=== PATIENT | male | born 1995 | race African-American/Black ===

== ENCOUNTER 2020-08-02 12:59 | Outpatient (CLI) | payer BC | END 2020-08-02 13:00 | disposition home or self-care (01) | LOC: CSHWCC 12:59 | PROVIDERS: ATTEND Nurse Practitioner Family | DX: T23.262D Burn of second degree of back of left hand, subsequent encounter (principal); T20.27XD Burn of second degree of neck, subsequent encounter; T22.212D Burn of second degree of left forearm, subsequent encounter; T20.09XD Burn of unspecified degree of multiple sites of head, face, and neck, subsequent encounter; F31.9 Bipolar disorder, unspecified; X00.0XXD Exposure to flames in uncontrolled fire in building or structure, subsequent encounter | CPT/HCPCS: 99203; G0463 ==

== ENCOUNTER 2021-09-09 17:01 | Emergency (ER) | payer BC, SELFPAY ==
[2021-09-09] MEDS ORDERED: Fentanyl 100 MCG/2 ML VIAL ONE (18:38)
[2021-09-09] MEDS ORDERED: Ketorolac Tromethamine 30 MG/ML VIAL ONE (18:45)
== END 2021-09-09 20:19 | disposition home or self-care (01) ==
LOC: CSHERS 17:01
DX: S93.05XA Dislocation of left ankle joint, initial encounter (principal); F17.210 Nicotine dependence, cigarettes, uncomplicated; W19.XXXA Unspecified fall, initial encounter
CPT/HCPCS: 27840; 96374; 96375; 99152; J1885; J3010

== ENCOUNTER 2023-04-27 20:33 | Emergency (ER) | payer SELFPAY ==
[2023-04-27] MEDS ORDERED: HYDROcodone/Acetaminophen 5/325 mg Tablet ONE (21:03)
== END 2023-04-27 21:07 | disposition home or self-care (01) ==
LOC: CSHERS 20:33
DX: K02.9 Dental caries, unspecified (principal); F17.290 Nicotine dependence, other tobacco product, uncomplicated
CPT/HCPCS: 99282